=== PATIENT | male | born 1980 | race Caucasian/White ===

== ENCOUNTER 2016-08-22 01:57 | Emergency (ER) | payer MEDICAID, MEDICARE, OTHER ==
[~2016-08-22] VITALS: Ht 188 cm; Wt 84.1 kg
[~2016-08-22 01:57] MED LIST: LAMO25TA55 PO; ZONI100C48 PO
[2016-08-22 02:02] VITALS: Ht 188 cm; Wt 84.1 kg
[2016-08-22] MEDS ORDERED: DIPHTH/TET/ACEL PERTUSS (ADULT) 0.5 ML VIAL IM* ONE (02:30)
[2016-08-22 02:41] LABS: INR 0.99; PROTIME 13.1 Sec (12.2-14.2)
[2016-08-22 02:42] LABS: PARTIAL THROMBOPLASTIN TIME 23.2 Sec (25.0-35.0)
[2016-08-22 02:43] LABS: POTASSIUM 3.4 mmol/L (3.5-5.1)
[2016-08-22 02:46] LABS: CREATININE 1.3 mg/dl (0.61-1.24)
[2016-08-22 02:47] LABS: CALCIUM 9.4 mg/dl (8.4-10.2)
[2016-08-22 02:50] LABS: BASOPHILS % 0.1 % (0.0-2.0); EOSINOPHILS % 0.3 % (0.0-7.0); HEMATOCRIT 41.6 % (42.0-52.0); HEMOGLOBIN 13.9 g/dl (14.0-18.0); LYMPHOCYTES # 1.4 10^3/ul (0.8-2.9); LYMPHOCYTES % 11.3 % (15.0-51.0); MEAN CORPUSCULAR HEMOGLOBIN 30.8 pg (29.0-33.0); MEAN CORPUSCULAR HGB CONC 33.5 g/dl (32.0-37.0); MEAN CORPUSCULAR VOLUME 91.9 fl (82.0-101.0); MEAN PLATELET VOLUME 10.4 fl (7.4-10.4); MONOCYTES % 8.2 % (0.0-11.0); NEUTROPHILS % 80.1 % (39.0-77.0); PLATELET COUNT 190 10^3/UL (140-440); RED BLOOD COUNT 4.53 10^6/ul (4.70-6.10); RED CELL DISTRIBUTION WIDTH 12.6 % (11.5-14.5); UNCORRECTED WBC 12.4 10^3/ul (4.8-10.8); WHITE BLOOD COUNT 12.4 10^3/ul (4.8-10.8)
[2016-08-22] MEDS ORDERED: FLUORESCEIN STRIP ONE (02:50)
[2016-08-22] MEDS ORDERED: morphine 2 MG INJ IV ONE (03:00)
[2016-08-22] MEDS ORDERED: PROPARACAINE 0.5% 15 ML OPH RIGHT EYE ONE (03:00)
--- NOTE | 2016-08-22 03:00 | RADRPT ---
PROCEDURE: CT scan facial bones CLINICAL INDICATION: Fall, right facial trauma, pain and swelling. TECHNIQUE: A CT of the facial bones was performed without intravenous contrast. Coronal and sagitt al reformats were generated. CTDIvol: 29.57 mGy. DLP = 606.98 mGy-cm. COMPARISON: None available. FINDINGS: There is right facial soft tissue swelling. A small fracture of the anterior nasal spine is noted.. A small amount of extraconal blood is identified in the superior right orbit, leading to mild righ t proptosis. There is no tenting of the posterior globe at this time. The paranasal sinuses and nasa l cavity are clear. The visualized intracranial soft tissues are within normal limits. Incidental n ote is made of a moderate spinal canal stenosis at the C3-C4 and C4-C5 levels due to degenerative di sk disease and short pedicles. IMPRESSION: 1. Small fracture of the anterior nasal spine. 2. Right facial soft tissue swelling. 3. Small amount of extraconal blood in the superior right orbit, leading to mild right proptosis. T here is no tenting of the posterior globe at this time. Continued follow-up is recommended. 4. Moderate spinal canal stenosis incidentally noted at the C3-C4 and C4-C5 levels due to degenerat catracho disk disease and short pedicles. Further evaluation with non emergent cervical spine MRI is rec ommended to evaluate the cervical spinal cord. RPTAT: HTAR .Feng Cason MD, Date Time Electronically viewed and signed by .Feng Cason MD, on 08/22/2016 03:00 .R/
[2016-08-22 03:07] LABS: CONDITION 1
[2016-08-22] MEDS ORDERED: IBUP-1542 PO (04:39)
[2016-08-22 05:31] VITALS: BP 138/77; PULSE 78; RESP 16
--- NOTE | 2016-08-22 05:53 | ERD ---
ER Documentation Chief Complaint Date/Time DATE: 08/22/16 TIME: 05:45 Chief Complaint Fell onto metal pole, hit right eye. HPI 36-year-old male with a history of seizure disorder presenting after a trip and fall today at his boarding care. He was walking in his room in the dark when he tripped over something and hit the right side of his face onto a metal object that had obvious rust on it. Currently he is unable to open his right eye due to lid swelling and complains of right facial pain. He denies having a seizure. He denies any significant headache, nausea, vomiting. There was no LOC. He denies any other injuries he is not sure when he received his last tetanus shot. ROS All systems reviewed and are negative except as per history of present illness. Medications Home Meds Active Scripts Ibuprofen* (Motrin*) 600 Mg Tab, 600 MG PO Q6H Y for PAIN AND OR ELEVATED TEMP, #30 TAB Prov:BARBARA DAWSON MD 08/22/16 Lamotrigine* (Lamotrigine* ER) 25 Mg Tab.er.24, 25 MG PO BID for 60 Days, TAB 3 Refills Prov:EMERSON WHITLOCK 05/19/16 Zonisamide* (Zonisamide*) 100 Mg Capsule, 300 MG PO BID for 60 Days, CAP 3 Refills Prov:EMERSON WHITLOCK 05/19/16 Allergies Allergies: Coded Allergies: No Known Drug Allergies (Verified Allergy, Mild, 05/18/16) PMhx/Soc History of Surgery: No Anesthesia Reaction: No Hx Neurological Disorder: Yes (Seizure/Epilepsy (diagnosed at age 21)) Hx Respiratory Disorders: No Hx Cardiac Disorders: No Hx Psychiatric Problems: No Hx Miscellaneous Medical Probl: Yes (Seizures) Hx Alcohol Use: Yes Hx Substance Use: No Hx Tobacco Use: Yes Smoking Status: Current every day smoker FmHx Family History: No diabetes Physical Exam Vitals Vital Signs Date Time Temp Pulse Resp B/P Pulse Ox O2 Delivery O2 Flow Rate FiO2 08/22/16 05:31 78 16 138/77 100 Room Air 08/22/16 04:14 66 16 137/77 100 Room Air 08/22/16 02:02 104 16 147/78 99 Physical Exam Const: No apparent distress, nontoxic Head: Atraumatic Eyes: Right periorbital ecchymosis with significant swelling of the right upper and lower lids, right cheek. Very difficult to open his right eye due to the swelling. Mild conjunctival injection of the right eye with chemosis and subconjunctival hemorrhage at 9:00. No hyphema. Visual acuity 20/70 in the right eye, 20/30 in the left eye. Intraocular pressure: OD 24, OS 19. EOMI. PERRLA. ENT: Normal External Ears, Nose and Mouth. Neck: Full range of motion. No midline tenderness . No meningismus. Resp: Clear to auscultation bilaterally Cardio: Regular rate and rhythm, no murmurs Abd: Soft, non tender, non distended. Normal bowel sounds Skin: No petechiae or rashes Back: No midline or flank tenderness Ext: No cyanosis, or edema, no deformities Neur: Awake and alert and oriented, cranial nerves intact, strength and sensations intact in all 4 extremity Psych: Normal Mood and Affect Result Diagram: 08/22/1622308/22/164 Results 24 hrs Laboratory Tests Test 08/22/16 02:24 Activated Partial Thromboplast Time 23.2Sec Anion Gap 16 Basophils # 0.010^3/ul Basophils % 0.1% Blood Urea Nitrogen 13mg/dl Calcium Level 9.4mg/dl Carbon Dioxide Level 20mmol/L Chloride Level 106mmol/L Creatinine 1.30mg/dl Eosinophils # 0.010^3/ul Eosinophils % 0.3% Glucose Level 99mg/dl Hematocrit 41.6% Hemoglobin 13.9g/dl INR International Normalized Ratio 0.99 Lymphocytes # 1.410^3/ul Lymphocytes % 11.3% Mean Corpuscular Hemoglobin 30.8pg Mean Corpuscular Hemoglobin Concent 33.5g/dl Mean Corpuscular Volume 91.9fl Mean Platelet Volume 10.4fl Monocytes # 1.010^3/ul Monocytes % 8.2% Neutrophils # 10.010^3/ul Neutrophils % 80.1% Nucleated Red Blood Cells # 0.010^3/ul Nucleated Red Blood Cells % 0.0/100WBC Platelet Count 91700^3/UL Potassium Level 3.4mmol/L Prothrombin Time 13.1Sec Prothrombin Time Ratio 1.0 Red Blood Count 4.5310^6/ul Red Cell Distribution Width 12.6% Sodium Level 139mmol/L White Blood Count 12.410^3/ul Current Medications Medications (Trade) Dose Ordered Sig/Flash Route PRN Reason Start Time Stop Time Status Last Admin Dose Admin Diphtheria/ Tetanus/Acell Pertussis (Adacel) 0.5 ml ONCE ONCE IM* 08/22/16 02:30 08/22/16 02:31 DC 08/22/16 02:17 Fluorescein Sodium (Vatip-A-Empkl) 1 strip STK-MED ONCE .ROUTE 08/22/16 02:50 08/22/16 02:51 DC Morphine Sulfate (morphine) 4 mg ONCE ONCE IV 08/22/16 03:00 08/22/16 03:01 DC 08/22/16 03:11 Proparacaine HCl (Alcaine 0.5%) 1 drop ONCE ONCE RIGHT EYE 08/22/16 03:00 08/22/16 03:01 DC Procedures/MDM Patient is presenting with right facial swelling after trauma. His Tdap was updated. There does not seem to be evidence of corneal abrasion, globe rupture , or significant elevation of intraocular pressure. There is no evidence of entrapment. His CT of his face showed a small nasal spine fracture with proptosis of the right eye with some periorbital hemorrhage. I attempted to transfer the patient out to a facility with ophthalmology, however there was no capacity at any of the nearby facilities with higher level of care. However there does not seem to be any ocular emergency at this time. I provided the patient with the phone numbers of multiple ophthalmologists and advised him to urgently call tomorrow to make an appointment within the next 24-48 hours with an clinician oncology for a dilated eye exam. His eyelid laceration was repaired with Steri-Strips. Patient feels comfortable with the plan and agrees to call an clinician oncology as soon as he leaves today. Return precautions were discussed. Patient was discharged in stable condition. Copies of his CT scan were provided. Departure Diagnosis: Primary Impression: Facial contusion Encounter type: initial encounter Qualified Code: S00.83XA - Facial contusion, initial encounter Additional Impressions: Hemorrhage of right orbit Contusion, eyelid, right Eyelid laceration, right Encounter type: initial encounter Qualified Code: S01.111A - Eyelid laceration, right, initial encounter Condition: Stable Patient Instructions: Facial Contusion, No Wakeup, Laceration, Face (Suture Or Tape), Tetanus Immunization And F/U Referrals: ANDRE FRANCISCO MD, HAROUTUN H. KANDAVEL, GANESHA MD Additional Instructions: See an Opthalmologist (Eye doctor) within 1-2 days for a follow up exam. Return to the ER for worsening symptoms. BARBARA DAWSON MD Aug 22, 2016 05:53
== END 2016-08-22 05:38 | disposition home or self-care (01) ==
LOC: E/R 01:57
DX: S01.111A Laceration without foreign body of right eyelid and periocular area, initial encounter (principal); F17.210 Nicotine dependence, cigarettes, uncomplicated; H05.231 Hemorrhage of right orbit; R40.2142 Coma scale, eyes open, spontaneous, at arrival to emergency department; R40.2362 Coma scale, best motor response, obeys commands, at arrival to emergency department; R40.2252 Coma scale, best verbal response, oriented, at arrival to emergency department; W01.198A Fall on same level from slipping, tripping and stumbling with subsequent striking against other object, initial encounter; Y92.049 Unspecified place in boarding-house as the place of occurrence of the external cause; Z23 Encounter for immunization
CPT/HCPCS: 70486; 80048; 85025; 85610; 85730; 90715; J2270; Z7610; 36415; 90471; 96374

== ENCOUNTER 2017-06-27 03:53 | Emergency (ER) | payer MEDICARE, OTHER ==
[~2017-06-27] VITALS: Ht 180.3 cm; Wt 81.8 kg
[~2017-06-27 03:53] MED LIST changes: +IBUP-1542 PO
[2017-06-27 03:55] VITALS: Ht 180.3 cm; Wt 81.8 kg
[2017-06-27 04:00] VITALS: TEMP 97.8
[2017-06-27] MEDS ORDERED: LEVETIRACETAM 500 MG (PMX) 100 ML IVPB ONE (04:00)
--- NOTE | 2017-06-27 04:01 | ERD ---
ER Documentation Chief Complaint Chief Complaint HPI Patient is a 36-year-old male who presents with witnessed generalized tonic- clonic seizure lasting approximately 1 minute. There is no report of trauma. [place]. Patient has history of seizure disorder but states that he has not been compliant with his medication. He states that he was advised to take Keppra, but never filled the prescription. Records show that he previously took Lamictal and Zonegran. The patient denies alcohol use today, but states that he is methamphetamine last 1 week ago. Fingerstick glucose by EMS was 136. ROS All systems reviewed and are negative except as per history of present illness. Medications Home Meds Active Scripts Levetiracetam* (Keppra*) 500 Mg Tablet, 500 MG PO BID, #60 TAB Prov:DENA ZEPEDA MD 06/27/17 Ibuprofen* (Motrin*) 600 Mg Tab, 600 MG PO Q6H Y for PAIN AND OR ELEVATED TEMP, #30 TAB Prov:BARBARA DAWSON MD 08/22/16 Lamotrigine* (Lamotrigine* ER) 25 Mg Tab.er.24, 25 MG PO BID for 60 Days, TAB 3 Refills Prov:EMERSON WHITLOCK 05/19/16 Zonisamide* (Zonisamide*) 100 Mg Capsule, 300 MG PO BID for 60 Days, CAP 3 Refills Prov:EMERSON WHITLOCK 05/19/16 Allergies Allergies: Coded Allergies: No Known Drug Allergies (Verified Allergy, Mild, 05/18/16) PMhx/Soc Past medical history: Epilepsy Past surgical history: None Social history: Occasional methamphetamine use, denies alcohol or tobacco History of Surgery: No Anesthesia Reaction: No Hx Neurological Disorder: Yes (Seizure/Epilepsy (diagnosed at age 21)) Hx Respiratory Disorders: No Hx Cardiac Disorders: No Hx Psychiatric Problems: No Hx Miscellaneous Medical Probl: Yes (Seizures) Hx Alcohol Use: Yes Hx Substance Use: No Hx Tobacco Use: Yes FmHx Noncontributory Physical Exam Vitals Vital Signs Date Time Temp Pulse Resp B/P Pulse Ox O2 Delivery O2 Flow Rate FiO2 06/27/17 05:50 75 14 129/62 98 Room Air 06/27/17 04:00 97.8 70 14 127/97 99 Room Air 06/27/17 03:55 97.8 81 14 134/75 98 Physical Exam Const: Lethargic, answers questions appropriately, No odor of alcohol Head: Atraumatic Eyes: Conjunctival injection, no pallor, no icterus. Pupils equal round and reactive, midrange ENT: Normal External Ears, Nose and Mouth. Mucous membranes moist, no tongue laceration Neck: Full range of motion..~ No meningismus. No midline tenderness Resp: Clear to auscultation bilaterally, No wheezes, no rales Cardio: Regular rate and rhythm, no murmurs Abd: Soft, non tender, non distended. Skin: No petechiae or rashes Back: No midline or flank tenderness Ext: No cyanosis, or edema Neur: Awake and alert, Cranial nerves II through XII intact bilaterally, moves and feels 4 extremities appropriately. Psych: Normal Mood and Affect Results 24 hrs Current Medications Medications (Trade) Dose Ordered Sig/Flash Route PRN Reason Start Time Stop Time Status Last Admin Dose Admin Levetiracetam (Keppra 500 Mg/ 100ml (Pmx)) 100 ml @ 400 mls/hr ONCE ONCE IVPB 06/27/17 04:00 06/27/17 04:14 DC 06/27/17 04:38 Procedures/MDM MDM: Patient is a 36-year-old male who presents with 1 minute of witnessed generalized tonic-clonic seizures. There is no evidence of trauma. The patient has history of seizure disorder, and reports being noncompliant with his medications. He does report that he was supposed to start Keppra, but does not have a prescription. He is observed in the ER until he returned to baseline. He was alert and oriented and had no acute medical complaint. He will be provided with a prescription for Keppra and was advised to follow-up with his PMD or neurologist within the next week.DMV was notified of the patient 's seizure. Departure Diagnosis: Primary Impression: Epileptic seizure Epilepsy type: other generalized Intractability: not intractable Status epilepticus: without status epilepticus Qualified Code: G40.409 - Other generalized epilepsy, not intractable, without status epilepticus Condition: DENA Barajas MD Jun 27, 2017 04:01
[2017-06-27 05:50] VITALS: BP 129/62; PULSE 75; RESP 14
[2017-06-27] MEDS ORDERED: LEVE-5 PO (06:49)
== END 2017-06-27 10:04 | disposition home or self-care (01) ==
LOC: E/R 03:53
DX: G40.409 Other generalized epilepsy and epileptic syndromes, not intractable, without status epilepticus (principal); R40.2222 Coma scale, best verbal response, incomprehensible words, at arrival to emergency department; R40.2342 Coma scale, best motor response, flexion withdrawal, at arrival to emergency department; R40.2122 Coma scale, eyes open, to pain, at arrival to emergency department; Z87.891 Personal history of nicotine dependence
CPT/HCPCS: 96374; 99284; J1953

== ENCOUNTER 2017-08-15 19:04 | Inpatient (IN) | END 2017-09-02 19:50 | DRG 472 ==